=== PATIENT | male | born 1955 | race Caucasian/White ===

== ENCOUNTER 2020-08-22 18:35 | Emergency (ER) | payer MEDICARE, MEDICAID, SELFPAY ==
[2020-08-22 18:43] VITALS: BP 119/62; PULSE 82; RESP 18; TEMP 36.6; O2SAT 96; BMI 26.6
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
[2020-08-22] MEDS: Lidocaine HCl 2 % MPF 5 ML VIAL INFILTRATI (19:30)
[2020-08-22] MEDS: Ibuprofen 800 MG TABLET PO (20:52)
[2020-08-22 20:53] VITALS: BP 115/67; PULSE 84; RESP 18; O2SAT 98
== END 2020-08-22 21:18 | disposition home or self-care (01) ==
PROVIDERS: Emergency Provider Emergency Medicine; PCP Internal Medicine
DX: S02.2XXA Fracture of nasal bones, initial encounter for closed fracture (principal); S01.111A Laceration without foreign body of right eyelid and periocular area, initial encounter; H57.11 Ocular pain, right eye; J34.89 Other specified disorders of nose and nasal sinuses; M54.2 Cervicalgia; G44.309 Post-traumatic headache, unspecified, not intractable; Y04.8XXA Assault by other bodily force, initial encounter; Y93.9 Activity, unspecified; Y92.9 Unspecified place or not applicable; Y99.9 Unspecified external cause status
CPT/HCPCS: 70450; 70486; 72125; 99284

== ENCOUNTER 2021-05-09 12:20 | Emergency (ER) | payer OTHER, MEDICAID, SELFPAY ==
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
[2021-05-09 13:40] VITALS: BP 114/69; PULSE 72; RESP 16; TEMP 36.6; O2SAT 98; BMI 31.5
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
[2021-05-09] MEDS: Lidocaine 4 % Patch ADH..PATCH 1 PATCH TRANSDERMA (16:16)
[2021-05-09] MEDS: Acetaminophen 325 MG TABLET 650 MG PO (16:16)
[2021-05-09] MEDS: Cyclobenzaprine HCl 10 MG TABLET 5 MG PO (16:16)
== END 2021-05-09 16:23 | disposition home or self-care (01) ==
PROVIDERS: Emergency Provider Emergency Medicine; PCP Internal Medicine
DX: S19.9XXA Unspecified injury of neck, initial encounter (principal); S29.9XXA Unspecified injury of thorax, initial encounter; S39.92XA Unspecified injury of lower back, initial encounter; M79.10 Myalgia, unspecified site; R07.89 Other chest pain; M54.2 Cervicalgia; I25.10 Atherosclerotic heart disease of native coronary artery without angina pectoris; I10 Essential (primary) hypertension; Z79.01 Long term (current) use of anticoagulants; Z79.899 Other long term (current) drug therapy; V43.52XA Car driver injured in collision with other type car in traffic accident, initial encounter; W22.12XA Striking against or struck by front passenger side automobile airbag, initial encounter; Y93.9 Activity, unspecified; Y92.410 Unspecified street and highway as the place of occurrence of the external cause; Y99.9 Unspecified external cause status
CPT/HCPCS: 72100; 72125; 99284

== ENCOUNTER 2022-02-03 07:42 | Outpatient (REF) | payer MEDICARE, MEDICAID, SELFPAY ==
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
== END 2022-02-03 07:43 | disposition home or self-care (01) ==
LOC: HO.HOSX 07:42
PROVIDERS: Visit Provider Physician Assistant
DX: M79.671 Pain in right foot (principal); Z96.9 Presence of functional implant, unspecified
CPT/HCPCS: 73610; 99212

== ENCOUNTER 2023-05-05 12:35 | Emergency (ER) | payer OTHER, MEDICAID, SELFPAY ==
--- NOTE | ~2023-05-05 | CT_ITS ---
EXAMINATION: CT ABDOMEN AND PELVIS WITHOUT CONTRAST CLINICAL INFORMATION: Left flank pain, dysuria. Rule out stones COMPARISON: None available. TECHNIQUE: Multidetector volumetric imaging was performed from the superior aspect of the liver through the pubic symphysis. Sagittal and coronal reformatted images were obtained on the Workstation. This CT examination was performed using dose optimization techniques as appropriate, variously including the following: *Automated exposure control *Adjustment of mA and/or kV according to patient size (this includes techniques or standardized protocols for targeted exams where dose is matched to indication/reason for exam; i.e. extremities or head) *Use of iterative reconstruction technique DLP: 609 mGy-cm FINDINGS: LUNG BASES: The lung bases are clear. The heart size is normal. LIVER, GALLBLADDER, AND BILIARY TREE: The liver is normal in size, shape, and attenuation. No focal hepatic lesion or biliary ductal dilatation is present. There are punctate dependent radiopaque gallstones without wall thickening. No pericholecystic fluid collection seen. PANCREAS: Unremarkable. SPLEEN: Unremarkable. ADRENAL GLANDS: Unremarkable. KIDNEYS AND URETERS: The kidneys are normal in size, shape, and attenuation. No hydronephrosis, hydroureter, or calculi seen. No perinephric stranding. BLADDER: Unremarkable. GASTROINTESTINAL TRACT: There is moderate scattered stool seen throughout the colon without significant distention. The small bowel loops are normal caliber. Appendix is normal caliber. No inflammatory process, free air or free fluid seen in the abdomen. ABDOMINAL WALL: No significant hernia is appreciated. LYMPH NODES: Normal. VASCULAR: Unremarkable. PELVIC VISCERA: There is mild prostate enlargement with punctate central gland calcification. OSSEOUS STRUCTURES: No aggressive lytic or sclerotic process seen. Moderate left L1-L2 facet joint. Moderate left L1-L2 facet joint arthropathy is noted. CT/CT abdomen pelvis wo IV con IMPRESSION: Moderate constipation otherwise no acute process seen. Fleischner guidelines were followed.
[2023-05-05 13:48] VITALS: BP 145/83; PULSE 55; RESP 18; TEMP 36.6; O2SAT 98; BMI 28.7
--- NOTE | 2023-05-05 13:55 | ED.GENADULT ---
HPI - General Adult General Chief complaint: Urogenital-Male Stated complaint: lower abd pain Related Data Home Medications Medication Instructions Recorded Confirmed aspirin 81 mg tablet,delayed 81 mg PO DAILY 02/03/22 02/22/22 release (Adult Low Dose Aspirin) clonidine HCl 0.1 mg tablet 0.1 mg PO BEDTIME 02/03/22 02/22/22 metoprolol succinate 25 mg 25 mg PO DAILY 02/03/22 02/22/22 tablet,extended release 24 hr atorvastatin 80 mg tablet 80 mg PO BEDTIME 02/22/22 02/22/22 citalopram 20 mg tablet 20 mg PO DAILY 02/22/22 02/22/22 clopidogrel 75 mg tablet 75 mg PO DAILY 02/22/22 02/22/22 levothyroxine 100 mcg tablet 1 tab PO DAILY 02/22/22 02/22/22 spironolactone 100 mg tablet 100 mg PO DAILY 02/22/22 02/22/22 Previous Rx's Medication Instructions Recorded acetaminophen 500 mg tablet 500 mg PO Q6H PRN pain or fever 05/09/21 (Tylenol Extra Strength) #20 tabs cyclobenzaprine 5 mg tablet 5 mg PO Q8H PRN pain (scale score 05/09/21 7-10) 5 days #14 tabs lidocaine 5 % topical patch 1 patch topical DAILY PRN pain #30 05/09/21 (Lidoderm) ea Allergies Allergy/AdvReac Type Severity Reaction Status Date / Time No Known Allergies Allergy Verified 05/05/23 13:47 [No Known Allergies*] [facility] Past Medical History Medical History (Updated 02/22/22 @ 13:37 by Karina Davison RN) Arthritis Low back pain Anxiety and depression PTSD (post-traumatic stress disorder) Heart attack High cholesterol HTN (hypertension) Surgical History (Updated 02/22/22 @ 13:36 by Karina Davison RN) Hx of colonoscopy Hx of cataract extraction Status post ORIF of fracture of ankle History of heart artery stent Social History Social History Are you a primary career and transition teacher to a significant other at home: No Do you presently have visiting nurse or other home services: No Alcohol intake: current Alcohol intake frequency: does not drink Patient Tobacco Use Status: Former Tobacco user Quit Date: 1984 Tobacco use type: Cigarette Current occupational status: disabled Current occupation: rt hand Course Course Course Narrative: Patient complains of frequent small amounts of urination, a sensation of incomplete emptying of the bladder some burning with urination and then over the last 2 days some flank and left-sided low back pain Bladder scan, noncontrast CT, and labs ordered This is rapid medical exam and triage pending full evaluation by ER provider to follow lab results, scan results, full history and physical and dispo patient Discharge Plan Discharge Prescriptions: No Action acetaminophen [Tylenol Extra Strength] 500 mg tablet 500 mg PO Q6H PRN (Reason: pain or fever) Qty: 20 0RF lidocaine [Lidoderm] 5 % adhesive patch,medicated 1 patch topical DAILY MDD remove after 12 hours PRN (Reason: pain) Qty: 30 0RF Rx Instructions: leave on most painful area for up to 12 hrs cyclobenzaprine 5 mg tablet 5 mg PO Q8H PRN (Reason: pain (scale score 7-10)) 5 Days Qty: 14 0RF spironolactone 100 mg Tablet 100 mg PO DAILY clopidogrel 75 mg Tablet 75 mg PO DAILY citalopram 20 mg Tablet 20 mg PO DAILY atorvastatin 80 mg Tablet 80 mg PO BEDTIME levothyroxine 100 mcg tablet 1 tab PO DAILY aspirin [Adult Low Dose Aspirin] 81 mg tablet,delayed release (DR/EC) 81 mg PO DAILY clonidine HCl 0.1 mg tablet 0.1 mg PO BEDTIME metoprolol succinate 25 mg tablet extended release 24 hr 25 mg PO DAILY
[2023-05-05 14:11] LABS: MANUAL DIFF FLAG NO
[2023-05-05 14:14] LABS: Basophils Percent Auto 0.5 % (0-2); Eosinophils Absolute Auto 0.3 X10*3/uL (0.0-0.4); Hematocrit 46.1 % (42.0-52.0); Hemoglobin 15.2 g/dl (14.0-18.0); Imm Gran Abs Auto 0.03 X10*3/uL (0.00-0.03); Imm Gran Pct Auto 0.4 % (0.0-0.4); Lymphocytes Absolute Auto 2.5 X10*3/uL (1.2-4.9); Mean Corpuscular Hemoglobin 31.7 pg (27.0-33.0); Mean Platelet Volume 9.4 fL (9.4-12.4); Monocytes Absolute Auto 0.6 X10*3/uL (0.1-1.2); Monocytes Percent Auto 7.5 % (2-11); Neutrophils Absolute Auto 4.1 x10*3/uL (2.0-8.3); Neutrophils Percent Auto 54.6 % (45-73); Platelet Count 266 X10*3/uL (160-400); Red Cell Distribution Width 12.4 % (11.0-16.0); White Blood Count 7.6 X10*3/uL (4.8-10.8)
[2023-05-05 14:15] LABS: Appearance Urine Clear; Color Urine Dark Yellow; Glucose Urine UA Negative (Negative); Leukocyte Esterase Urine Negative (Negative); Nitrite Urine Negative (Negative); PH 5.5 (5.0-9.0); Specific Gravity - Urine >= 1.030 (1.005-1.025); Urine Blood Negative (Negative); Urine Ketones Trace mg/dL (Negative); Urine Protein Negative (Neg-Trace)
[2023-05-05 14:24] LABS: Anion Gap 12 (12-20); Blood Urea Nitrogen 25 mg/dL (9-16); Calcium 10.2 mg/dL (8.4-10.2); Carbon Dioxide 25 mmol/L (22-29); Chloride 108 mmol/L (96-108); Creatinine Clr Calc Pharmacy 77.2; Estimated Glomerular Filt Rate > 60; Glucose Random 91 mg/dL (60-115); Potassium 4.2 mmol/L (3.3-5.1); Sodium 141 mmol/L (135-145)
[2023-05-05 17:11] VITALS: BP 135/64; PULSE 50; RESP 16; O2SAT 97
--- NOTE | 2023-05-05 18:49 | PC.NURSE ---
pt walked out; reports i have to attend my daughters libertarian. i attempted to convince pt to wait for ed provider for eval as blood work and imaging had resulted. pt refused.
--- NOTE | 2023-05-05 18:56 | ED_ITS ---
HPI - Male Genitourinary General Chief complaint: Urogenital-Male Stated complaint: lower abd pain Time Seen by Provider: 05/05/23 17:58 Related Data Home Medications Medication Instructions Recorded Confirmed aspirin 81 mg tablet,delayed 81 mg PO DAILY 02/03/22 02/22/22 release (Adult Low Dose Aspirin) clonidine HCl 0.1 mg tablet 0.1 mg PO BEDTIME 02/03/22 02/22/22 metoprolol succinate 25 mg 25 mg PO DAILY 02/03/22 02/22/22 tablet,extended release 24 hr atorvastatin 80 mg tablet 80 mg PO BEDTIME 02/22/22 02/22/22 citalopram 20 mg tablet 20 mg PO DAILY 02/22/22 02/22/22 clopidogrel 75 mg tablet 75 mg PO DAILY 02/22/22 02/22/22 levothyroxine 100 mcg tablet 1 tab PO DAILY 02/22/22 02/22/22 spironolactone 100 mg tablet 100 mg PO DAILY 02/22/22 02/22/22 Previous Rx's Medication Instructions Recorded acetaminophen 500 mg tablet 500 mg PO Q6H PRN pain or fever 05/09/21 (Tylenol Extra Strength) #20 tabs cyclobenzaprine 5 mg tablet 5 mg PO Q8H PRN pain (scale score 05/09/21 7-10) 5 days #14 tabs lidocaine 5 % topical patch 1 patch topical DAILY PRN pain #30 05/09/21 (Lidoderm) ea Allergies Allergy/AdvReac Type Severity Reaction Status Date / Time No Known Allergies Allergy Verified 05/05/23 13:47 [No Known Allergies*] [facility] Past Medical History Medical History (Updated 05/05/23 @ 18:57 by Laura Pete MD) Arthritis Low back pain Anxiety and depression PTSD (post-traumatic stress disorder) Heart attack High cholesterol HTN (hypertension) Surgical History (Updated 02/22/22 @ 13:36 by Karina Davison RN) Hx of colonoscopy Hx of cataract extraction Status post ORIF of fracture of ankle History of heart artery stent Social History Social History Are you a primary restorative care technician to a significant other at home: No Do you presently have visiting nurse or other home services: No Alcohol intake: current Alcohol intake frequency: does not drink Patient Tobacco Use Status: Former Tobacco user Quit Date: 1984 Tobacco use type: Cigarette Smoked in Last 30 Days: No Use of substances other than those prescribed or required for medical reasons: No Advance Directives: No Advance Directives Information Provided: No Current occupational status: disabled Current occupation: rt hand Physical Exam 2 Vital Signs: Vital Signs: Last Vital Signs Temp 98 F 05/05/23 13:48 Pulse 50 05/05/23 17:11 Resp 16 05/05/23 17:11 BP 135/64 05/05/23 17:11 Pulse Ox 97 05/05/23 17:11 O2 Del Method Room Air 05/05/23 17:11 BMI result Body Mass Index 28.7 Medical Decision Making Medical Decision Making MDM Narrative: I did not evaluate this patient. He walked out prior to me arriving Lab Data 05/05/23 14:04 05/05/23 14:04 Labs: Lab Results 05/05/23 Range/Units 14:04 WBC 7.6 (4.8-10.8) X10*3/uL RBC 4.80 (4.60-5.80) X10*6/uL Hgb 15.2 (14.0-18.0) g/dl Hct 46.1 (42.0-52.0) % MCV 96.0 (80.0-98.0) fL MCH 31.7 (27.0-33.0) pg MCHC 33.0 (31.0-36.0) g/dl RDW 12.4 (11.0-16.0) % Plt Count 266 (160-400) X10*3/uL MPV 9.4 (9.4-12.4) fL Immature Gran % (Auto) 0.4 (0.0-0.4) % Neut % (Auto) 54.6 (45-73) % Lymph % (Auto) 33.0 (20-40) % [place] % (Auto) 7.5 (2-11) % Eos % (Auto) 4.0 (0-4) % Baso % (Auto) 0.5 (0-2) % Lymph # (Auto) 2.5 (1.2-4.9) X10*3/uL [place] # (Auto) 0.6 (0.1-1.2) X10*3/uL Eos # (Auto) 0.3 (0.0-0.4) X10*3/uL Baso # (Auto) 0.0 (0.0-0.2) X10*3/uL Abs Immat Gran (auto) 0.03 (0.00-0.03) X10*3/uL Absolute Neuts (auto) 4.1 (2.0-8.3) x10*3/uL Absolute Nucleated RBC 0.000 (0.0-0.012) X10*3/uL Nucleated RBC % (auto) 0.0 (0.0-0.2) /100WBC Sodium 141 (135-145) mmol/L Potassium 4.2 (3.3-5.1) mmol/L Chloride 108 (96-108) mmol/L Carbon Dioxide 25 (22-29) mmol/L Anion Gap 12 (12-20) BUN 25 H (9-16) mg/dL Creatinine 1.08 (0.5-1.4) mg/dL Estim Creat Clear Calc 77.2 Estimated GFR > 60 Random Glucose 91 (60-115) mg/dL Calcium 10.2 (8.4-10.2) mg/dL Urine Color Dark Yellow Urine Appearance Clear Urine pH 5.5 (5.0-9.0) Ur Specific [place] >= 1.030 H (1.005-1.025) Urine Protein Negative (Neg-Trace) mg/dL Urine Glucose (UA) Negative (Negative) mg/dL Urine Ketones Trace (Negative) mg/dL Urine Blood Negative (Negative) Urine Nitrite Negative (Negative) Ur Leukocyte Esterase Negative (Negative) Discharge Plan Discharge Clinical Impression: Abdominal pain in male Patient Disposition: Left Without Being Seen Interventions: LWBS Worksheet Last Done: 05/05/23 18:50 Discharge Date/Time: 05/05/23 18:50
== END 2023-05-05 18:50 | disposition left against medical advice (07) ==
PROVIDERS: Physician Assistant Medical; Emergency Provider Emergency Medicine Emergency Medical Services
DX: R10.30 Lower abdominal pain, unspecified (principal); K59.00 Constipation, unspecified; I10 Essential (primary) hypertension; E78.5 Hyperlipidemia, unspecified; Z79.82 Long term (current) use of aspirin; Z79.899 Other long term (current) drug therapy; Z87.891 Personal history of nicotine dependence
CPT/HCPCS: 36415; 51798; 74176; 80048; 81003; 85025; 99284

== ENCOUNTER 2023-07-02 12:17 | Outpatient (AMB) | payer OTHER, MEDICAID, SELFPAY ==
--- NOTE | 2023-07-02 12:31 | A.OFFVIS_ITS ---
Intake Vital Signs 07/02/23 12:32 Height 5 ft 10 in Weight 204 lb 9.423 oz BMI 29.4 BP 108/66 Blood Pressure Location Lt brachial Position Sitting Pulse 70 Intake Visit Reasons: NPV/Clearance for ortho Intake Note: NPV w/ EKG [employer] Programmer Required: No Accompanied by: Self / Same As Patient Allergies No Known Allergies [No Known Allergies*] Allergy (Verified 07/02/23 12:35) Medication List - Last Reviewed 07/02/23 by Janessa Huerta aspirin (Adult Low Dose Aspirin) 81 mg PO DAILY atorvastatin 80 mg PO BEDTIME citalopram 20 mg PO DAILY clonidine HCl 0.1 mg PO BEDTIME clopidogrel 75 mg PO DAILY cyclobenzaprine 5 mg PO Q8H PRN 5 days levothyroxine 1 tab PO DAILY lidocaine 5% (Lidoderm) 1 patch topical DAILY PRN MDD remove after 12 hours metoprolol succinate ER 25 mg PO DAILY spironolactone 100 mg PO DAILY HPI HPI Comments History of Present Illness Details Jerald is here for consultation regarding preoperative stratification for knee surgery. History of coronary disease and it appears that in 2016 and 2018 he underwent right coronary artery interventions. He states he has been seen at [facility] but not in the last few years. He states he has been in and out of half-way and hence missed a lot of appointments. Unclear compliance with medications. Currently, planning to go for knee surgery. He states he can still walk with knee pain and can walk sometimes as much as 40 minutes or so. Has not had any recent chest pains. History of substance abuse including cocaine but not recently. Remote smoker. [facility] Medical History (Updated 07/02/23 @ 12:49 by Umesh Love MD) Atherosclerotic cardiovascular disease Arthritis Low back pain Anxiety and depression PTSD (post-traumatic stress disorder) Heart attack High cholesterol HTN (hypertension) Surgical History Hx of colonoscopy Hx of cataract extraction Status post ORIF of fracture of ankle History of heart artery stent Family History Mother H/O heart artery stent Father No problems noted. Social History Are you a primary health care coordinator to a significant other at home: No Do you presently have visiting nurse or other home services: No Alcohol intake: current Alcohol intake frequency: does not drink Patient Tobacco Use Status: Former Tobacco user Quit Date: 1984 Tobacco use type: Cigarette Current occupational status: disabled Current occupation: rt hand Review of Systems Const Denies weakness ENT Denies dizziness Card Denies chest pain, Denies chest pain with activity, Denies syncope, Denies rapid heart rate, Denies pedal edema, Denies edema, Denies leg edema, Denies lightheadedness, Denies palpitations, Denies dyspnea, Denies dyspnea on exertion and Denies orthopnea Resp Denies cough, Denies dyspnea and Denies dyspnea on exertion GI Denies hematochezia and Denies change in stool character Musc Denies abnormal gait, Denies muscle cramps, Denies muscle weakness, Denies numbness, Denies radiating pain into limb and Denies tingling Neuro Denies abnormal gait, Denies dizziness, Denies syncope, Denies numbness, Denies tingling and Denies weakness Endo Denies palpitations Physical Exam Vital Signs: Last Vital Signs Pulse 70 07/02/23 12:32 BP 108/66 07/02/23 12:32 BMI result Body Mass Index 29.4 Const General: comfortable and no acute distress Orientation/consciousness: patient oriented x3 HEENT Other: Unremarkable Head: Yes normal to inspection Neck Neck: Yes normal visual inspection Chest Chest palpation & inspection: normal inspection of the chest Resp Auscultation: clear to auscultation bilaterally Cardio Palpation: normal PMI Heart sounds: S1 normal heart sound present, S2 normal heart sound present, no gallops, no murmurs and no rubs GI Palpation (GI): Soft to palpation Back/Spine/Pelvis Other: unremarkable Skin General skin exam: no rashes or lesions noted Neuro General: patient oriented x3 Extrem General: Yes normal to inspection Psych Mental Status: mental status grossly normal Office Procedures EKG Details: EKG today with sinus 70/min, no significant ST-T changes, normal [place]. [id number], Complete Assessment & Plan Assessment & Plan (1) Preoperative cardiovascular examination: Code(s): Z01.810 - Encounter for preprocedural cardiovascular examination (2) Atherosclerotic cardiovascular disease: Code(s): I25.10 - Atherosclerotic heart disease of [place] coronary artery without angina pectoris Plan Cardiac catheterization data reviewed. Last from 2018. At that time,, mainly single-vessel disease with severe ISR in the proximal bare metal stent, status post TED. Nonobstructive disease elsewhere. We will plan on getting an echocardiogram and stress perfusion imaging study for further evaluation. Once these are reviewed, we can make an addendum regarding preoperative risk for knee surgery. With regard to medications, no major changes but he can stop the Plavix as there is no recent PCI. Orders: Orders NM cardiolite stress test Today R07.2 - Precordial pain, Z01.810 - Encounter for preprocedural cardiovascular examination CA echo transthoracic complete Today I25.10 - Atherosclerotic heart disease of [place] coronary artery without angina pectoris, Z01.810 - Encounter for preprocedural cardiovascular examination CA stress test Today R07.2 - Precordial pain, Z01.810 - Encounter for preprocedural cardiovascular examination Medications: Discontinued clonidine HCl Discontinued Reason: Patient no longer taking 0.1 mg PO BEDTIME Coding Level of Care Code New Pt Level 4 (26990) Diagnoses Preoperative cardiovascular examination Z01.810 Atherosclerotic cardiovascular disease I25.10 CPT Codes EKG - CPT: [id number], Complete ([id number])
[2023-07-02 12:32] VITALS: BP 108/66; PULSE 70; BMI 29.4
== END 2023-07-02 13:51 | disposition home or self-care (01) ==
PROVIDERS: Visit Provider Internal Medicine
DX: Z01.810 Encounter for preprocedural cardiovascular examination (principal); I25.10 Atherosclerotic heart disease of native coronary artery without angina pectoris
CPT/HCPCS: 93010; 99204

== ENCOUNTER → 2023-07-02 12:17 | Outpatient (BNVA) | payer OTHER, SELFPAY | PROVIDERS: Visit Provider Internal Medicine | DX: Z01.810 Encounter for preprocedural cardiovascular examination (principal); I25.10 Atherosclerotic heart disease of native coronary artery without angina pectoris | CPT/HCPCS: 93005; 99202 ==

== ENCOUNTER → 2023-07-18 10:25 | Outpatient (REF) | payer OTHER, SELFPAY ==
--- NOTE | ~2023-07-18 | NM_ITS ---
EXERCISE MYOCARDIAL PERFUSION STUDY INDICATION: Coronary disease, assess for ischemia TECHNIQUE: The patient was brought in for an exercise perfusion study on 07/18/2023. Patient performed exercise as per Mauro protocol and was injected 30 mCi of sestamibi once target heart rate was achieved. Images were obtained using the SPECT gamma camera interlaced with the gating device. Images were obtained in supine position. Resting perfusion study was performed on 07/23/2023. Patient was administered 30 mCi of sestamibi intravenously at rest. Images were then obtained in supine position. Images were processed with the software and compared side to side in short axis, horizontal long axis and vertical long axis views. Total DLP 100mGy-cm. FINDINGS: Raw images were reviewed. The stress perfusion study showed no significant perfusion defects. Both uncorrected as well as CT attenuation corrected images were reviewed. The gated study shows normal LV systolic function with calculated LVEF of 66%. LV cavity is normal in size. The gated study shows normal wall thickening and contraction of segments. Resting study shows no significant perfusion defects. Gating at rest reveals normal wall motion with ejection fraction at 60%. The findings are consistent with no clear reversible or fixed perfusion abnormality. NE/NE cardiolite stress test IMPRESSION: 1. Myocardial perfusion imaging study shows probably normal myocardial perfusion. 2. Gated LVEF is 66% during stress and 60% during rest. 3. Transient ischemic dilatation not present. EKG component of the test reported separately.
--- NOTE | 2023-07-18 10:30 | CA_ITS ---
Acquisition Time: 2023-07-18 10:42:05 Total Exercise Time: 00:06:36 Test Indications: CAD Medications: ASA ATORVASTATIN CITALOPRAM CLONIDINE CLOPIDOGREL LEVOTHYROXINE SPIRONALACTONE Protocol: ALEX Max HR: 131 BPM 85% of Pred: 154 BPM Max BP: 148/058 mmHG Max Work Load: 7.5 METS Exercise stress test exercise 6 min 36 sec of Alex protocol achieving 86% MPHR with moderate SOB, no chest discomfort, with isolated PVCs, with normotensive response to exercise, without EKG changes. Breathing returned to normal. Nuclear images pending. Test reviewed with Dr. Brooke Referred By: Umesh Love Overread By: Clau Nguyen
== END ==
LOC: HO.CARD 10:25
PROVIDERS: Visit Provider Internal Medicine
DX: Z01.810 Encounter for preprocedural cardiovascular examination (principal); R07.2 Precordial pain; I25.10 Atherosclerotic heart disease of native coronary artery without angina pectoris
CPT/HCPCS: 78452; 93017; A9500

== ENCOUNTER → 2023-07-18 10:30 | Outpatient (BNV) | payer OTHER, SELFPAY | PROVIDERS: Visit Provider Nurse Practitioner | DX: R07.2 Precordial pain (principal); R06.02 Shortness of breath | CPT/HCPCS: 78452; 93016; 93018 ==

== ENCOUNTER 2023-09-19 19:04 | Emergency (ER) | payer OTHER, SELFPAY ==
--- NOTE | ~2023-09-19 | CT_ITS ---
CT HEAD AND CERVICAL SPINE WITHOUT CONTRAST HISTORY: 68 years old Male, fall TECHNIQUE: Contiguous axial imaging was performed from the skull base to vertex without intravenous contrast. Sagittal and coronal reformatted images were obtained. CT images of the cervical spine were acquired without intravenous contrast. This CT examination was performed using dose optimization techniques as appropriate, variously including the following: *Automated exposure control *Adjustment of mA and/or kV according to patient size (this includes techniques or standardized protocols for targeted exams where dose is matched to indication/reason for exam; i.e. extremities or head) *Use of iterative reconstruction technique DLP: 1209.09 mGy-cm COMPARISON: CT head and cervical spine 05/09/2021 FINDINGS: CT HEAD: Redemonstrated mild global cerebral volume loss. No territorial loss of banuelos-white differentiation. No acute intracranial hemorrhage or extra-axial fluid collection. No mass lesion, significant mass effect, or herniation pattern. The orbits are grossly normal. The paranasal sinuses and mastoid air cells are well aerated. Redemonstrated chronic fracture deformity of the right nasal bone. No acute fracture. New surgical skin gonzalo overlying a laceration with subjacent scalp hematoma. CT CERVICAL SPINE: No prevertebral soft tissue swelling. The craniocervical junction is intact. Straightening of the normal cervical lordosis. Trace degenerative anterolisthesis at C4-C5. Vertebral body heights are normal without acute compression fracture or traumatic posterior element subluxation. No suspicious osseous lesion. Again noted multilevel discogenic and cervical spondylitic disease. Please note that assessment of the spinal canal is limited in the absence of intrathecal contrast. Normal appearance of the paraspinal soft tissues. Visualized lung apices are clear. Calcified bilateral palatine tonsilloliths. Medialization of the right epiglottic fold was prominent to the right pyriform sinus and medial positioning of the right vocal cord. Diminutive thyroid gland. CT/CT cervical spine wo IV con IMPRESSION: No CT evidence of acute intracranial injury. No acute osseous injury or traumatic malalignment in the cervical spine. Medialization of the right epiglottic fold was prominent to the right pyriform sinus and medial positioning of the right vocal cord can be correlated clinically for vocal cord paresis/paralysis.
[2023-09-19 19:15] VITALS: BP 150/100; PULSE 78; O2SAT 98; BMI 28.1
[2023-09-19 19:19] VITALS: BP 140/83; PULSE 77; RESP 17; TEMP 36.8; O2SAT 96
--- NOTE | 2023-09-19 19:27 | MHC.EDTECH ---
PT refusing to change into hospital gown. PT requesting a Dr immediately unless he is going to leave
--- NOTE | 2023-09-19 19:28 | MHC.EDTECH ---
PT attempting to remove his C Collar. Pt becoming agitated and yelling at staff demanding to leave
--- NOTE | 2023-09-19 19:34 | PC.NURSE ---
pt refusing to change into hospital attire at this time, pt refusing labs and ripped of c-collar. pt yelling at staff and demanding to see a doctor. pt agitated. charge attendant aware and security at bedside.
--- NOTE | 2023-09-19 19:39 | PC.NURSE ---
provider Biju KHAN aware of pt condition at this time. security at bedside.
--- NOTE | 2023-09-19 19:46 | PC.NURSE ---
provider at bedside to discuss pt care.
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
--- NOTE | 2023-09-19 20:01 | PC.NURSE ---
Biju KAHN placed 6 gonzalo in pt head, pt tolerated well. covered with non stick guaze at this time. pt resting in stretcher, cooperative at this time.
--- NOTE | 2023-09-19 21:02 | PC.NURSE ---
Pt out of bed ambulatory with steady gait to ER waiting room doors stating he wants to leave NOW! Security and Biju KHAN to talk with pt. Benefits of staying explained to pt and Risks of leaving including explained to pt and pt voices understanding. Ambulatory out of department with steady gait and all personal belongings.
== END 2023-09-19 21:07 | disposition left against medical advice (07) ==
PROVIDERS: Emergency Provider Emergency Medicine Emergency Medical Services; PCP Physician Assistant
DX: S01.01XA Laceration without foreign body of scalp, initial encounter (principal); R51.9 Headache, unspecified; M54.2 Cervicalgia; W01.10XA Fall on same level from slipping, tripping and stumbling with subsequent striking against unspecified object, initial encounter; Y93.9 Activity, unspecified; Y92.9 Unspecified place or not applicable; Y99.8 Other external cause status; Z87.891 Personal history of nicotine dependence; Z79.899 Other long term (current) drug therapy
CPT/HCPCS: 12002; 70450; 72125; 99284

== ENCOUNTER 2025-06-03 13:53 | Emergency (ER) | payer MEDICARE, MEDICAID, SELFPAY ==
--- NOTE | ~2025-06-03 | CT_ITS ---
CLINICAL HISTORY: upper lip lesion CT maxillofacial with contrast Comparison: None provided Findings: No acute fractures. Temporomandibular joints are intact. Paranasal sinuses and mastoid air cells clear. Orbits normal. Visualized intracranial contents are within normal limits. There is soft tissue thickening and fat stranding of the upper lip with heterogeneous attenuation. No discrete mass is seen. No abnormal fluid collection or soft tissue gas. There are enlarged cervical lymph nodes: Left level 1B 1 x 1.8 cm series 2, image 51 and right level 2A lymph node 1.2 x 1.6 cm image 84. IMPRESSION: Soft tissue thickening and fat stranding of the upper lip without discrete mass. No drainable fluid collection. Enlarged cervical lymph nodes. This document has been electronically signed by: Erasmo Johns MD on 06/03/2025 19:09:18
[2025-06-03 14:28] VITALS: BP 140/79; PULSE 98; RESP 16; TEMP 37; O2SAT 95
--- NOTE | 2025-06-03 14:29 | ED_ITS ---
HPI - General Adult General Chief complaint: Dental/Oral Stated complaint: facial swelling Time Seen by Provider: 06/03/25 15:49 Source: patient, RN notes reviewed and old records reviewed Mode of arrival: ambulatory Limitations: no limitations History of Present Illness ED Provider: COTL Aguirre HPI narrative: 70-year-old male with medical history of PTSD, HTN, HLD, ACD, presents to ED due to 4 days of upper lip swelling. Patient states he woke up 4 days ago with upper lip swollen, with pain and noticed a crust like area which he picked at and noticed some purulent drainage. Patient states he then was leaving the area alone to heal but has had pain when talking and eating. Patient states he noticed some swelling under the L eye this morning with worsening pain of the lip and episodes of chills today. Denies fevers, abdominal pain, nausea, vomiting. MD complaint: upper lip swelling and crusting with drainage Related Data Home Medications ?Medication ?Instructions ?Recorded ?Confirmed aspirin 81 mg tablet,delayed 81 mg PO DAILY 02/03/22 1 09/01/22 release (Adult Low Dose Aspirin) metoprolol succinate 25 mg 25 mg PO DAILY 02/03/2202/16 tablet,extended release 24 hr atorvastatin 80 mg tablet 80 mg PO BEDTIME 02/22/22 citalopram 20 mg tablet 20 mg PO DAILY 02/22/2202/16 levothyroxine 100 mcg tablet 1 tab PO DAILY 02/22/22 1 09/01/22 spironolactone 100 mg tablet 100 mg PO DAILY 02/22/22 07/02/23 clonidine HCl 0.1 mg tablet 0.1 mg PO BEDTIME 07/02/23 Previous Rx's ?Medication ?Instructions ?Recorded cyclobenzaprine 5 mg tablet 5 mg PO Q8H PRN pain (scal e score 05/09/21 7-10) 5 days #14 tabs lidocaine 5 % topical patch 1 patch topical DAILY PRN pain #30 05/09/21 (Lidoderm) ea clindamycin HCl 300 mg capsule 300 mg PO TID #21 caps 06/03/25 (Cleocin HCl) mupirocin 2 % topical ointment 1 appl topical TID 1 we ek #15 grams 06/03/25 (Centany) Allergies Allergy/AdvReac Type Severity Reaction Status Date / Time No Known Allergies (No Known Allergy Verified 06/03/25 14:29 Allergies*) Review of Systems 2 Review of Systems: CONST: Negative for fever, body aches and chills. HENT: Negative for neck pain/stiffness, headache, congestion, sore throat, swelling. POS upper lip swelling with crusting and discharge EYES: Negative for discharge/pain or vision changes. RESP: Negative for cough/hemoptysis and shortness of breath. CV: Negative chest pain, difficulty breathing, palpitations. ABD: Negative pain, nausea, vomiting. : Negative increase frequency, dysuria, blood in urine or stool. MUSC: Negative for muscle aches, edema. SKIN: Negative rash, lesions/sores. NEURO: Negative headache, dizziness, weakness. Yes all other systems are reviewed and are negative PMFSH Past Medical History Attestation statement: The following information was validated with the patient. Source: old records reviewed and nursing notes reviewed Medical History (Updated 06/03/25 @ 17:33 by Franci Aguirre PA-C) Atherosclerotic cardiovascular disease Arthritis Low back pain Anxiety and depression PTSD (post-traumatic stress disorder) Heart attack High cholesterol HTN (hypertension) Surgical History Hx of colonoscopy Hx of cataract extraction Status post ORIF of fracture of ankle History of heart artery stent Family History Family History Mother H/O heart artery stent Father No problems noted. Social History Social History Are you a primary patient care nursing assistant to a significant other at home: No Do you presently have visiting nurse or other home services: No Alcohol intake: current Alcohol intake frequency: does not drink Alcohol type: beer and hard liquor Patient Tobacco Use Status: Former Tobacco user Tobacco use type: Cigarette Advance Directives: No Advance Directives Information Provided: Yes Current occupational status: disabled Current occupation: rt hand Physical Exam ED Vital Signs: Vital Signs - 24 hr 06/03/25 14:28 06/03/25 17:24 Temperature 98.6 F 97.1 F Pulse Rate 98 72 Respiratory Rate 16 18 Blood Pressure 140/79 H 138/77 Pulse Oximetry 95 93 Oxygen Delivery Method Room Air Room Air BMI result Body Mass Index 30.0 GENERAL APPEARANCE: ?AxOx4, generally well-appearing, no acute distress. HEENT: ?NC, AT. MMM. EOMI, clear conjunctiva, oropharynx clear. NECK: ?Supple without lymphadenopathy.? No stiffness or restricted ROM. HEART:? Normal rate and regular rhythm, normal S1/S2, no m/r/g LUNGS:? CTAB, moving air well. No crackles or wheezes are heard. ABDOMEN: ?Soft, nontender, nondistended with good bowel sounds heard. BACK: No CVAT, no obvious deformity. EXTREMITIES: ?Without cyanosis, clubbing or edema. NEUROLOGICAL: ?Grossly nonfocal. Alert and oriented, moving all 4 extremities. Observed to ambulate with normal gait. Skin: ?Warm and dry without any rash. Course Course Course Narrative: This is a rapid medical exam performed by Frank Nueñz NP: Additional HPI, ROS, PE not included below will be deferred to primary provider. Patient is a 70y/o M presenting to the ED with complaint of swelling to upper lip for the past few days. Now swelling spreading to L eye. Denies any fevers or dental pain. Not on any ACEIs. Plan: labs, charge notified Reevaluation(s) Reevaluation #1: Patient received in sign-out at change of shift pending CT scan of the facial bones to evaluate for significant infectious process. There is some soft tissue edema with fat stranding consistent with a mild cellulitis. No discrete fluid collection or deep infection. We will treat the patient is clindamycin which would cover dental sources as well as MRSA. We will also cover with mupirocin Time: 19:12 Medications Administered Discontinued Medications Generic Name Dose Route Start Last Admin Trade Name Freq PRN Reason Stop Dose Admin Dexamethasone Sodium Phosphate 10 mg 06/03/25 16:24 06/03/25 16:55 Dexamethasone Sod Phosphate 10 Mg/Ml Vial IVPUSH 06/03/25 16:25 10 mg ONCE ONE Administration Piperacillin Sod/Tazobactam 50 mls @ 100 mls/hr 06/03/25 16:18 06/03/25 18:00 Sod 3.375 gm/ Sodium Chloride IV 06/03/25 16:47 Infused ONCE ONE Infusion Acetaminophen 1,000 mg in 100 mls @ 400 mls/hr 06/03/25 16:24 06/03/25 17:19 Ofirmev IV 06/03/25 16:38 Infused ONCE ONE Infusion Iohexol 100 ml 06/03/25 17:59 06/03/25 17:59 Iohexol 350 Mg/Ml 100 Ml Infus..Btl IV 06/03/25 18:00 85 ml ONCE ONE Administration Medical Decision Making Medical Decision Making [facility] Narrative: 70-year-old male with medical history of PTSD, HTN, HLD, ACD, presents to ED due to 4 days of upper lip swelling. Patient states he woke up 4 days ago with upper lip swollen, with pain and noticed a crust like area which he picked at and noticed some purulent drainage. Patient states he then was leaving the area alone to heal but has had pain when talking and eating. Patient states he noticed some swelling under the L eye this morning with worsening pain of the lip and episodes of chills today. Plan: Labs, CT facial bones Labs reveal leukocytosis of 11.7 with a left shift of 73.9, H&H stable, total bilirubin elevated to 1.6, however on chart review patient seems to have elevated bilirubin at baseline, lactic acid WNL at 1.6. Patient was medicated with 1 g IV Tylenol, 3.375 g IV Zosyn, 10 mg Decadron for swelling. Currently awaiting CT facial bones for further evaluation. Patient most likely to be discharged home with antibiotic therapy. Patient was signed out to my colleague COLT Gagnon who will resume care of the patient. Patient is aware and in agreement with the plan. Differential Diagnosis Differential Diagnoses: The differential diagnosis associated with the presentation includes Angioedema Abscess Cellulitis Impetigo Admission/Observation Consideration of admission/observation: Escalation of care including admission/observation considered Lab Data [facility] Lab Attestation statement: I reviewed the patient's lab results. 06/03/25 14:49 06/03/25 14:49 Labs: Lab Results 06/03/25 06/03/25 Range/Units 14:49 16:43 WBC 11.7 H (4.8-10.8) X10*3/uL RBC 4.53 L (4.60-5.80) X10*6/uL Hgb 14.7 (14.0-18.0) g/dl Hct 43.9 (42.0-52.0) % MCV 96.9 (80.0-98.0) fL MCH 32.5 (27.0-33.0) pg MCHC 33.5 (31.0-36.0) g/dl RDW 12.5 (11.0-16.0) % Plt Count 287 (160-400) X10*3/uL MPV 9.6 (9.4-12.4) fL Immature Gran % (Auto) 0.6 H (0.0-0.4) % Neut % (Auto) 73.9 H (45-73) % Lymph % (Auto) 13.8 L (20-40) % Owen % (Auto) 11.0 (2-11) % Eos % (Auto) 0.4 (0-4) % Baso % (Auto) 0.3 (0-2) % Lymph # (Auto) 1.6 (1.2-4.9) X10*3/uL Owen # (Auto) 1.3 H (0.1-1.2) X10*3/uL Eos # (Auto) 0.1 (0.0-0.4) X10*3/uL Baso # (Auto) 0.0 (0.0-0.2) X10*3/uL Abs Immat Gran (auto) 0.07 H (0.00-0.03) X10*3/uL Absolute Neuts (auto) 8.6 H (2.0-8.3) x10*3/uL Absolute Nucleated RBC 0.000 (0.0-0.012) X10*3/uL Nucleated RBC % (auto) 0.0 (0.0-0.2) /100WBC Sodium 139 (135-145) mmol/L Potassium 4.2 (3.3-5.1) mmol/L Chloride 106 (96-108) mmol/L Carbon Dioxide 25 (22-29) mmol/L Anion Gap 12 (12-20) BUN 17 H (9-16) mg/dL Creatinine 1.17 (0.5-1.4) mg/dL Estim Creat Clear Calc 69.8 Estimated GFR > 60 Random Glucose 105 (60-115) mg/dL Lactic Acid 1.6 (0.5-2.0) mmol/L Calcium 9.7 (8.4-10.2) mg/dL Total Bilirubin 1.6 H (0.0-1.0) mg/dL AST 24 (5-37) U/L ALT 27 (0-40) U/L Alkaline Phosphatase 70 (39-117) U/L Total Protein 7.5 (6.5-8.0) g/dL Albumin 4.2 (3.5-5.0) g/dL Independent Interpretation I performed an independent interpretation of an: CT Scan Radiology Impression Discussion of test interpretation with radiology: I have reviewed the radiologist's reading. Radiologist Impression: CT facial bones Findings: No acute fractures. Temporomandibular joints are intact. Paranasal sinuses and mastoid air cells clear. Orbits normal. Visualized intracranial contents are within normal limits. There is soft tissue thickening and fat stranding of the upper lip with heterogeneous attenuation. No discrete mass is seen. No abnormal fluid collection or soft tissue gas. There are enlarged cervical lymph nodes: Left level 1B 1 x 1.8 cm series 2, image 51 and right level 2A lymph node 1.2 x 1.6 cm image 84. IMPRESSION: Soft tissue thickening and fat stranding of the upper lip without discrete mass. No drainable fluid collection. Enlarged cervical lymph nodes. This document has been electronically signed by: Erasmo Johns MD on 06/03/2025 19:09:18 External Record Review External record reviewed: Inpatient record, Office record and Outpatient record Chronic Conditions Patient?s care impacted by: Hypertension and Other (ACD,) Discharge Plan Discharge Clinical Impression: Cellulitis Patient Disposition: Home, Self-Care Instructions: Cellulitis (ED) Additional Instructions: Take clindamycin 3 times daily for 1 week pain Apply the mupirocin ointment as directed. Follow up with your primary doctor, return for new or worsening symptoms. Use warm compresses to the swollen area Prescriptions: New clindamycin HCl [Cleocin HCl] 300 mg capsule 300 mg PO TID Qty: 21 0RF mupirocin [Centany] 2 % ointment 1 appl topical TID 7 Days Qty: 15 0RF No Action lidocaine [Lidoderm] 5 % adhesive patch,medicated 1 patch topical DAILY MDD remove after 12 hours PRN (Reason: pain) Qty: 30 0RF Rx Instructions: leave on most painful area for up to 12 hrs cyclobenzaprine 5 mg tablet 5 mg PO Q8H PRN (Reason: pain (scale score 7-10)) 5 Days Qty: 14 0RF spironolactone 100 mg Tablet 100 mg PO DAILY citalopram 20 mg Tablet 20 mg PO DAILY atorvastatin 80 mg Tablet 80 mg PO BEDTIME levothyroxine 100 mcg tablet 1 tab PO DAILY aspirin [Adult Low Dose Aspirin] 81 mg tablet,delayed release (DR/EC) 81 mg PO DAILY metoprolol succinate 25 mg tablet extended release 24 hr 25 mg PO DAILY clonidine HCl 0.1 mg tablet 0.1 mg PO BEDTIME Print Language: Mongolian
[2025-06-03 14:55] LABS: MANUAL DIFF FLAG NO
[2025-06-03 14:56] LABS: Hematocrit 43.9 % (42.0-52.0); Hemoglobin 14.7 g/dl (14.0-18.0); Imm Gran Abs Auto 0.07 X10*3/uL (0.00-0.03); Imm Gran Pct Auto 0.6 % (0.0-0.4); Lymphocytes Absolute Auto 1.6 X10*3/uL (1.2-4.9); Mean Corpuscular HGB Conc 33.5 g/dl (31.0-36.0); Mean Corpuscular Hemoglobin 32.5 pg (27.0-33.0); Mean Corpuscular Volume 96.9 fL (80.0-98.0); NRBC Abs Auto 0.000 X10*3/uL (0.0-0.012); NRBC Pct Auto 0.0 /100WBC (0.0-0.2); Platelet Count 287 X10*3/uL (160-400); Red Blood Count 4.53 X10*6/uL (4.60-5.80); White Blood Count 11.7 X10*3/uL (4.8-10.8)
[2025-06-03 16:09] LABS: Alanine Aminotransferase 27 U/L (0-40); Albumin Level 4.2 g/dL (3.5-5.0); Alkaline Phosphatase 70 U/L (39-117); Anion Gap 12 (12-20); Aspartate Amino Transferase 24 U/L (5-37); Blood Urea Nitrogen 17 mg/dL (9-16); Calcium 9.7 mg/dL (8.4-10.2); Carbon Dioxide 25 mmol/L (22-29); Chloride 106 mmol/L (96-108); Creatinine Clr Calc Pharmacy 69.8; Estimated Glomerular Filt Rate > 60; Potassium 4.2 mmol/L (3.3-5.1); Sodium 139 mmol/L (135-145); Total Protein 7.5 g/dL (6.5-8.0)
[2025-06-03 17:24] VITALS: BP 138/77; PULSE 72; RESP 18; TEMP 36.2; O2SAT 93
[2025-06-03] MEDS: iohexoL 350 MG/ML 100 ML INFUS..BTL IV (17:59)
--- NOTE | 2025-06-03 19:04 | MHC.EDTECH ---
patient was incontinent of stool x3 nurses and this tech changed and clean him
[2025-06-03 19:33] VITALS: BP 138/77; PULSE 72; RESP 18; TEMP 36.2; O2SAT 93
== END 2025-06-03 19:33 | disposition home or self-care (01) ==
PROVIDERS: Registered Nurse Emergency; Emergency Provider Emergency Medicine Emergency Medical Services
DX: L03.211 Cellulitis of face (principal); K13.0 Diseases of lips; R22.0 Localized swelling, mass and lump, head; I10 Essential (primary) hypertension; Z86.79 Personal history of other diseases of the circulatory system; Z79.899 Other long term (current) drug therapy
CPT/HCPCS: 36415; 70487; 80053; 83605; 85025; 87040; 96365; 96367; 96375; 99284; 99285; J0131; J1100; J2543; Q9967

== ENCOUNTER → 2025-06-03 16:27 | Outpatient (BNV) | payer MEDICARE, MEDICAID, SELFPAY | PROVIDERS: Emergency Provider Emergency Medicine Emergency Medical Services; Visit Provider Nuclear Medicine | DX: R22.0 Localized swelling, mass and lump, head (principal) | CPT/HCPCS: 70487 ==